=== PATIENT | male | born 1975 | race Caucasian/White ===

== ENCOUNTER 2020-11-07 11:15 | Emergency (ER) | payer OTHER, SELFPAY ==
[2020-11-07 11:27] VITALS: BP 141/78; PULSE 58; RESP 18; TEMP 36.5; O2SAT 97; BMI 40.4
--- NOTE | 2020-11-07 13:20 | ED_ITS ---
HPI - Recheck/Abnormal Lab/Rx General Chief Complaint: Recheck/Abnormal Lab/Rx Stated Complaint: Insalin Time Seen by Provider: 11/07/20 13:19 Source: patient Mode of arrival: Ambulatory Limitations: no limitations History of Present Illness HPI narrative: This is a 45-year-old male who is a known insulin-dependent diabetic requesting refill for his insulin. Patient did contact the local pharmacies a only give regular insulin and would cost approximately 200 dollars monthly. Patient normally takes Lantus 40 units nightly. He has recently moved to the area and is attempting to establish with a primary care but has not been successful. Patient denies any other symptoms or concerns at this time. Related Data Previous Rx's Medication Instructions Recorded insulin glargine [Lantus U-100 40 unit SUBCUT .QHS 30 Days #20 ml 11/07/20 Insulin] Allergies Allergy/AdvReac Type Severity Reaction Status Date / Time No Known Drug Allergies Allergy Verified 11/07/20 11:27 Review of Systems Review of Systems ROS Unobtainable: All systems reviewed & are unremarkable except as noted in HPI and below Patient History Social History Smoking Status: Current every day smoker Smoking Status: Current every day smoker tobacco type: smokeless tobacco alcohol intake frequency: a few times a month Substance Use Type: does not use Exam Narrative Exam Narrative: GENERAL: Alert and oriented x three, swelling appearing male in mild distress. HEENT: Head normocephalic, atraumatic, EOMI, pupils reactive, face symmetric, moist mucous membranes NECK: Supple, full range of motion CARDIOVASCULAR: Regular rate and rhythm without murmurs, rubs or gallops. RESPIRATORY: Breath sounds equal bilaterally, no wheezes rales or rhonchi. ABDOMEN: Soft, nontender. Normoactive bowel sounds all 4 quadrants. No guarding or rebound, rigidity, no mass EXTREMITIES: Normal range of motion, no clubbing or edema. Neurovascularly intact NEUROLOGICAL: Cranial nerves II through XII grossly intact. Moving all extremities. Normal gait. SKIN: Warm, dry, no petechiae, no rashes or lesions. Initial Vital Signs Initial Vital Signs: Vital Signs Temperature 97.7 F 11/07/20 11:27 Pulse Rate 58 L 11/07/20 11:27 Respiratory Rate 18 11/07/20 11:27 Blood Pressure 141/78 H 11/07/20 11:27 Pulse Oximetry 97 11/07/20 11:27 Course Vital Signs Vital signs: Vital Signs - 8 hr 11/07/20 11:27 Temperature 97.7 F Pulse Rate 58 L Respiratory Rate 18 Blood Pressure 141/78 H Pulse Oximetry 97 MDM - Recheck/Abnormal Lab/Rx MDM Narrative Medical decision making narrative: 45-year-old male with insulin-dependent diabetes who requires refill of his daily Lantus. Patient is attempting to established and was given contact information for our hospice social worker. He deferred any direct contact from them at this time as he states he has contact his insurance company he has received name suggested but has not contacted them yet. Discharge Plan Departure Patient Disposition: Home Clinical Impression: Encounter for medication refill Activity Restrictions/Additional Instructions: Follow up establish with a primary care provider. If you are unable to find a physician, our emergency department hospice social worker is available. Either call or leave a message at [phone] if you need assistance. Continue medication as prescribed. Prescription to [facility]. Return for any other concerns Prescriptions: New Lantus U-100 Insulin 100 unit/mL solution 40 unit SUBCUT .QHS 30 Days Qty: 20 RF: 0
== END 2020-11-07 13:32 | disposition home or self-care (01) ==
PROVIDERS: Emergency Provider Emergency Medicine
DX: Z76.0 Encounter for issue of repeat prescription (principal)
CPT/HCPCS: 99281

== ENCOUNTER → 2021-02-19 08:38 | Outpatient (CLI) | payer OTHER, SELFPAY ==
[2021-02-19 10:03] LABS: Add Manual Diff / Slide Review NO; Basophils Absolute Auto 100 /uL (0-100); Eosinophils Absolute Auto 100 /uL (0-450); Eosinophils Percent Auto 1.7 % (2-4); Hematocrit 41.8 % (41-53); Hemoglobin 14.1 g/dL (13.5-17.5); Lymphocytes Absolute Auto 2800 /uL (1100-4500); Lymphocytes Percent Auto 44.5 % (25-40); Mean Corpuscular HGB Conc 33.7 % (30-36); Mean Corpuscular Hemoglobin 29.7 PG (26-34); Mean Corpuscular Volume 88.1 fL (80-100); Monocytes Absolute Auto 500 /uL (0-900); Monocytes Percent Auto 7.7 % (3-14); Neutrophils Absolute Auto 2800 /uL (1500-7000); Neutrophils Percent Auto 45.1 % (50-75); Platelet Count 266 X10^3/uL (150-400); Red Blood Cell Count 4.75 X10^6/uL (4.5-5.9); Red Cell Distribution Width 13.4 % (11.6-14.8); White Blood Cell Count 6.2 X10^3/uL (4.5-11.0)
[2021-02-19 10:26] LABS: Alanine Aminotransferase 36 IU/L (<50); Albumin 4.3 g/dL (3.5-5.0); Albumin Globulin Ratio 1.5 (1.0-2.8); Alkaline Phosphatase 49 U/L (38-126); Aspartate Aminotransferase 29 IU/L (17-59); BUN Creatinine Ratio 23.2 (6-22); Bilirubin Total 0.4 mg/dL (0.2-1.3); Blood Urea Nitrogen 16 mg/dL (9-20); Calcium 9.5 mg/dL (8.4-10.2); Carbon Dioxide 24 mmol/L (22-32); Chloride 103 mmol/L (98-107); Cholesterol 273 mg/dL (140-199); Estimated Glomerular Filt Rate > 60.0 mL/min (>60); Globulin 2.8 g/dL (1.7-4.1); Glucose 195 mg/dL (70-100); HDL Cholesterol 34 mg/dL (40-60); HEMOLYSIS < 15 (0-50); Potassium 4.3 mmol/L (3.4-5.1); Sodium 135 mmol/L (137-145); Total Protein 7.1 g/dL (6.3-8.2); Triglycerides 517 mg/dL (35-150)
[2021-02-19 10:52] LABS: TSH w/ Reflex to FT4 2.69 uIU/mL (0.47-4.68)
== END ==
PROVIDERS: PCP Registered Nurse Diabetes Educator; Referring Provider Registered Nurse Diabetes Educator; Visit Provider Registered Nurse Diabetes Educator
DX: E11.9 Type 2 diabetes mellitus without complications (principal); E78.5 Hyperlipidemia, unspecified
CPT/HCPCS: 36415; 80053; 80061; 83036; 84443; 85025

== ENCOUNTER → 2021-09-03 09:05 | Outpatient (CLI) | payer OTHER, SELFPAY ==
[2021-09-03 10:06] LABS: Hemoglobin A1C% w Est Avg Glu 10.9 % (4.0-6.0)
[2021-09-03 10:22] LABS: Creatinine Urine Random 306.8 mg/dL
[2021-09-03 10:27] LABS: Microalbumi Creatinin Ratio Ur 7.1 ug/mg CR (<30); Microalbumin Urine Random 2.2 mg/dL (0-1.6)
== END ==
PROVIDERS: PCP Registered Nurse Diabetes Educator; Referring Provider Registered Nurse Diabetes Educator; Visit Provider Registered Nurse Diabetes Educator
DX: E11.9 Type 2 diabetes mellitus without complications (principal); Z79.4 Long term (current) use of insulin
CPT/HCPCS: 36415; 82043; 82570; 83036

== ENCOUNTER → 2022-01-04 07:28 | Outpatient (CLI) | payer OTHER, SELFPAY ==
[2022-01-04 09:09] LABS: Hemoglobin A1C% w Est Avg Glu 7.8 % (4.0-6.0)
[2022-01-04 09:15] LABS: BUN Creatinine Ratio 21.3 (6-22); Blood Urea Nitrogen 19 mg/dL (9-20); Calcium 8.8 mg/dL (8.4-10.2); Carbon Dioxide 25 mmol/L (22-32); Chloride 102 mmol/L (98-107); Estimated Glomerular Filt Rate > 60 mL/min (>60); Glucose 208 mg/dL (70-100); HEMOLYSIS < 15 (0-50); Potassium 4.5 mmol/L (3.4-5.1); Sodium 136 mmol/L (137-145)
== END ==
PROVIDERS: PCP Registered Nurse Diabetes Educator; Referring Provider Registered Nurse Diabetes Educator; Visit Provider Registered Nurse Diabetes Educator
DX: E11.9 Type 2 diabetes mellitus without complications (principal); I10 Essential (primary) hypertension; Z79.4 Long term (current) use of insulin
CPT/HCPCS: 36415; 80048; 83036

== ENCOUNTER → 2022-03-08 07:13 | Outpatient (CLI) | payer OTHER, SELFPAY ==
[2022-03-08 07:50] LABS: Hemoglobin 13.3 g/dL (13.5-17.5); Mean Corpuscular HGB Conc 35.1 % (30-36); Mean Corpuscular Hemoglobin 29.9 PG (26-34); Mean Corpuscular Volume 85.2 fL (80-100); Platelet Count 263 X10^3/uL (150-400); Red Blood Cell Count 4.46 X10^6/uL (4.5-5.9); Red Cell Distribution Width 14.1 % (11.6-14.8)
[2022-03-08 07:56] LABS: Hemoglobin A1C% w Est Avg Glu 7.9 % (4.0-6.0)
[2022-03-08 08:17] LABS: Creatinine Urine Random 291.1 mg/dL
[2022-03-08 08:22] LABS: Microalbumi Creatinin Ratio Ur 6.8 ug/mg CR (<30)
[2022-03-08 08:24] LABS: Alanine Aminotransferase 47 IU/L (<50); Albumin 4.6 g/dL (3.5-5.0); Albumin Globulin Ratio 1.7 (1.0-2.8); Alkaline Phosphatase 51 U/L (38-126); Aspartate Aminotransferase 32 IU/L (17-59); BUN Creatinine Ratio 19.5 (6-22); Bilirubin Total 0.6 mg/dL (0.2-1.3); Blood Urea Nitrogen 16 mg/dL (9-20); Carbon Dioxide 25 mmol/L (22-32); Chloride 104 mmol/L (98-107); Cholesterol 221 mg/dL (140-199); Estimated Glomerular Filt Rate > 60 mL/min (>60); Globulin 2.7 g/dL (1.7-4.1); Glucose 146 mg/dL (70-100); HDL Cholesterol 30 mg/dL (40-60); HEMOLYSIS < 15 (0-50); LDL Cholesterol Calculated 128 mg/dL (<100); Potassium 4.4 mmol/L (3.4-5.1); Sodium 138 mmol/L (137-145); Total Protein 7.3 g/dL (6.3-8.2); Triglycerides 313 mg/dL (35-150)
[2022-03-08 08:54] LABS: TSH w/ Reflex to FT4 2.51 uIU/mL (0.47-4.68)
== END ==
PROVIDERS: PCP Registered Nurse Diabetes Educator; Referring Provider Registered Nurse Diabetes Educator; Visit Provider Registered Nurse Diabetes Educator
DX: E11.9 Type 2 diabetes mellitus without complications (principal); E78.5 Hyperlipidemia, unspecified; I10 Essential (primary) hypertension; Z79.4 Long term (current) use of insulin
CPT/HCPCS: 36415; 80053; 80061; 82043; 82570; 83036; 84443; 85027

== ENCOUNTER → 2022-07-04 06:56 | Outpatient (CLI) | payer OTHER, SELFPAY ==
[2022-07-04 08:01] LABS: Hematocrit 39.1 % (41-53); Hemoglobin 13.7 g/dL (13.5-17.5); Mean Corpuscular Volume 85.8 fL (80-100); Platelet Count 251 X10^3/uL (150-400); Red Blood Cell Count 4.56 X10^6/uL (4.5-5.9); Red Cell Distribution Width 13.9 % (11.6-14.8); White Blood Cell Count 5.9 X10^3/uL (4.5-11.0)
[2022-07-04 08:11] LABS: Hemoglobin A1C% w Est Avg Glu 8.4 % (4.0-6.0)
[2022-07-04 08:26] LABS: Alanine Aminotransferase 47 IU/L (<50); Albumin 4.7 g/dL (3.5-5.0); Albumin Globulin Ratio 1.8 (1.0-2.8); Alkaline Phosphatase 58 U/L (38-126); Aspartate Aminotransferase 27 IU/L (17-59); BUN Creatinine Ratio 19.7 (6-22); Bilirubin Total 0.4 mg/dL (0.2-1.3); Blood Urea Nitrogen 15 mg/dL (9-20); Carbon Dioxide 25 mmol/L (22-32); Chloride 102 mmol/L (98-107); Cholesterol 163 mg/dL (140-199); Estimated Glomerular Filt Rate > 60 mL/min (>60); Globulin 2.6 g/dL (1.7-4.1); Glucose 237 mg/dL (70-100); HDL Cholesterol 30 mg/dL (40-60); HEMOLYSIS < 15 (0-50); Potassium 4.4 mmol/L (3.4-5.1); Sodium 139 mmol/L (137-145); Total Protein 7.3 g/dL (6.3-8.2); Triglycerides 454 mg/dL (35-150)
== END ==
PROVIDERS: PCP Registered Nurse Diabetes Educator; Referring Provider Registered Nurse Diabetes Educator; Visit Provider Registered Nurse Diabetes Educator
DX: E11.9 Type 2 diabetes mellitus without complications (principal); E78.5 Hyperlipidemia, unspecified; I10 Essential (primary) hypertension; Z79.4 Long term (current) use of insulin
CPT/HCPCS: 36415; 80053; 80061; 83036; 85027

== ENCOUNTER 2022-09-08 19:57 | Emergency (ER) | payer OTHER, SELFPAY ==
[2022-09-08 20:03] VITALS: BP 157/94; PULSE 92; RESP 18; TEMP 36.6; O2SAT 95; BMI 40.6
--- NOTE | 2022-09-08 20:30 | ED.NAVMDI ---
HPI - Nausea/Vomiting/Diarrhea General Chief complaint: Nausea/Vomiting/Diarrhea Stated complaint: Diarrhea Time Seen by Provider: 09/08/22 20:23 Source: patient Mode of arrival: Ambulatory Limitations: no limitations History of Present Illness HPI Narrative: This is a 47-year-old male with history of diabetes, hypertension, dyslipidemia, DYLAN and essential benign tremor. Patient states he gets diarrhea about once weekly when his Trulicity starts to wear often he had an episode this evening that he states was quite forceful. He states he thinks his rectum prolapsed. He states it is uncomfortable. He states he can feel something hanging out down there. He denies fevers or chills. No chest pain, no shortness of breath, no nausea or vomiting. Patient denies any abdominal pain. He is not been having persistent diarrhea. No black or bloody stools. Patient has not had hemorrhoid banding or other interventions in the past. He does not smoke any tobacco but does use smokeless tobacco, occasional alcohol, no illicit. His primary care is Calvin Ellis. Related Data Previous Rx's Medication Instructions Recorded atorvastatin 10 mg tablet 10 mg PO BEDTIME #90 tabs 03/30/22 dulaglutide 4.5 mg/0.5 mL 4.5 mg (0.5 mL) SUBCUT QWEEK #6 mL 03/30/22 subcutaneous pen injector (Trulicity) escitalopram oxalate 5 mg tablet 5 mg PO DAILY #90 tabs 03/30/22 fenofibrate 160 mg tablet 160 mg PO DAILY #90 tabs 03/30/22 metformin 500 mg tablet 1,000 mg PO BID #360 tabs 03/30/22 propranolol 20 mg tablet 20 mg PO BID #180 tabs 03/30/22 fluconazole 150 mg tablet 150 mg PO Q3D 2 doses #2 tabs 05/25/22 (Diflucan) empagliflozin 25 mg tablet 25 mg PO DAILY #90 tabs 07/05/22 (Jardiance) losartan 100 mg tablet 100 mg PO DAILY #90 tabs 07/05/22 insulin glargine 100 unit/mL 80 unit (0.8 mL) SUBCUT QPM #60 mL 07/15/22 subcutaneous solution insulin syringe needleless 1 mL #100 ea 07/15/22 fluconazole 150 mg tablet 150 mg PO Q3D 2 doses #2 tabs 09/08/22 (Diflucan) hydrocortisone 1 %-pramoxine 1 % 1 applic VA TID-QID PRN 09/08/22 rectal foam (Proctofoam HC) hemorrhoids #10 grams Allergies Allergy/AdvReac Type Severity Reaction Status Date / Time No Known Drug Allergies Allergy Verified 07/05/22 08:57 Review of Systems Review of Systems ROS Unobtainable: All systems reviewed & are unremarkable except as noted in HPI and below Patient History Medical History Anxiety Carpal tunnel syndrome Chicken pox Hearing loss History of benign essential tremor Hypertension (~2018) DYLAN (obstructive sleep apnea) Vision disorder Social History Smoking Status: Never smoker Smoking Status: Never smoker tobacco type: smokeless tobacco alcohol intake frequency: a few times a month Substance Use Type: does not use Exam Narrative Exam Narrative: GENERAL: Alert and oriented x three, obese male in mild distress. HEENT: Head normocephalic, atraumatic, EOMI, pupils reactive, face symmetric, moist mucous membranes NECK: Supple, full range of motion CARDIOVASCULAR: Regular rate and rhythm without murmurs, rubs or gallops. RESPIRATORY: Breath sounds equal bilaterally, no wheezes rales or rhonchi. ABDOMEN: Soft, nontender. Normoactive bowel sounds all 4 quadrants. No guarding or rebound, rigidity, no mass, patient has a large soft discolored hemorrhoid that is not thrombosed it is approximately the size of a large chicken egg. The rest of the patient's rectum actually appears normal. I am able to perform rectal exam without any issue patient's only very mildly tender. There is no bright red blood or stool : No CVA tenderness EXTREMITIES: Normal range of motion, no clubbing or edema. Neurovascularly intact NEUROLOGICAL: Cranial nerves II through XII grossly intact. Moving all extremities SKIN: Warm, dry, no petechiae, no rashes or lesions. Initial Vital Signs Initial Vital Signs: Vital Signs Temperature 97.9 F 09/08/22 20:03 Pulse Rate 92 H 09/08/22 20:03 Respiratory Rate 18 09/08/22 20:03 Blood Pressure 157/94 H 09/08/22 20:03 Pulse Oximetry 95 09/08/22 20:03 Oxygen Delivery Method 09/08/22 20:03 Course Vital Signs Vital signs: Vital Signs - 8 hr 09/08/22 20:03 Temperature 97.9 F Pulse Rate 92 H Respiratory Rate 18 Blood Pressure 157/94 H Pulse Oximetry 95 Oxygen Delivery Method Room Air MDM - Nausea/Vomiting/Diarrhea MDM Narrative Medical decision making narrative: Patient appears up a very large hemorrhoid I am able to perform rectal exam and he does not have actual prolapse. Hemorrhoid is surprisingly not that tender, does not appear thrombosed at this time. No active bleeding. Did discuss with General surgery usual messages chest just Sitz baths, stool softeners if constipated and can follow-up. Discussed with patient discussed return precautions. Did ask if he can have a prescription for Diflucan he gets balanitis intermittently and he states he started develop an episode usually gets 2 tablets takes 1 and if it does not resolve in a day or 2 he takes the 2nd. Discharge Plan Departure Patient Disposition: Home Clinical Impression: Hemorrhoid prolapse Activity Restrictions/Additional Instructions: Please follow-up for recheck. Your hemorrhoid is persisting and not shrinking referral is included for General surgery if it is becoming more problematic. I would recommend a stool softener if any constipation. Make sure you are staying hydrated. Sitz baths or warm baths 3-4 times daily to the affected area be quite helpful. You may find it helpful to use a donut pillow. You can put Proctofoam to the affected area 3-4 times daily. Also included is prescription for Diflucan [facility]cription [facility]. Please return if you are having rapidly worsening symptoms, bright red bleeding, lightheadedness or passing out, new abdominal pain, black stools or other new or concerning changes. Prescriptions: New Proctofoam HC 1-1 % foam 1 applic VA TID-QID PRN (Reason: hemorrhoids) Qty: 10 0RF fluconazole [Diflucan] 150 mg tablet 150 mg PO Q3D Qty: 2 0RF Rx Instructions: may repeat second dose 72 hrs after first dose if symptoms persist No Action fluconazole [Diflucan] 150 mg tablet 150 mg PO Q3D 0 Days Qty: 2 0RF Rx Instructions: Take 1 tablet by mouth today; may repeat dose in 3 days if symptoms continue. (DME) insulin syringe needleless 1 mL syringe See Rx Instructions .Route Qty: 100 0RF Rx Instructions: Use to inject insulin once daily insulin glargine 100 unit/mL solution 80 unit SUBCUT QPM Qty: 60 1RF atorvastatin 10 mg tablet 10 mg PO BEDTIME Qty: 90 1RF Trulicity 4.5 mg/0.5 mL pen injector 4.5 mg SUBCUT QWEEK Qty: 6 1RF escitalopram oxalate 5 mg tablet 5 mg PO DAILY Qty: 90 3RF fenofibrate 160 mg tablet 160 mg PO DAILY Qty: 90 3RF metformin 500 mg tablet 1,000 mg PO BID Qty: 360 3RF propranolol 20 mg tablet 20 mg PO BID Qty: 180 3RF Jardiance 25 mg tablet 25 mg PO DAILY Qty: 90 3RF losartan 100 mg tablet 100 mg PO DAILY Qty: 90 3RF Referrals: Calvin Ellis ARNP [Primary Care Provider] - Stand Alone Forms: Patient Portal/API
--- NOTE | 2022-09-08 20:48 | PC.NURSE ---
Patient noted to have large dark red bulge in rectal area.
== END 2022-09-08 21:07 | disposition home or self-care (01) ==
PROVIDERS: Emergency Provider Emergency Medicine; PCP Registered Nurse Diabetes Educator
DX: K64.8 Other hemorrhoids (principal)
CPT/HCPCS: 99281

== ENCOUNTER → 2022-10-03 07:15 | Outpatient (CLI) | payer OTHER, SELFPAY ==
[2022-10-03 08:48] LABS: Hemoglobin A1C% w Est Avg Glu 6.8 % (4.0-6.0)
[2022-10-03 09:07] LABS: Alanine Aminotransferase 30 IU/L (<50); Albumin 4.4 g/dL (3.5-5.0); Albumin Globulin Ratio 1.9 (1.0-2.8); Alkaline Phosphatase 54 U/L (38-126); Aspartate Aminotransferase 24 IU/L (17-59); BUN Creatinine Ratio 18.1 (6-22); Bilirubin Total 0.4 mg/dL (0.2-1.3); Blood Urea Nitrogen 13 mg/dL (9-20); Calcium 9.1 mg/dL (8.4-10.2); Carbon Dioxide 27 mmol/L (22-32); Chloride 103 mmol/L (98-107); Cholesterol 106 mg/dL (140-199); Estimated Glomerular Filt Rate > 60 mL/min (>60); Globulin 2.3 g/dL (1.7-4.1); Glucose 192 mg/dL (70-100); HDL Cholesterol 27 mg/dL (40-60); HEMOLYSIS < 15 (0-50); LDL Cholesterol Calculated 20 mg/dL (<100); Potassium 4.4 mmol/L (3.4-5.1); Sodium 138 mmol/L (137-145); Total Protein 6.7 g/dL (6.3-8.2); Triglycerides 294 mg/dL (35-150)
== END ==
PROVIDERS: PCP Registered Nurse Diabetes Educator; Referring Provider Registered Nurse Diabetes Educator; Visit Provider Registered Nurse Diabetes Educator
DX: E11.9 Type 2 diabetes mellitus without complications (principal); E78.5 Hyperlipidemia, unspecified; I10 Essential (primary) hypertension; Z79.4 Long term (current) use of insulin
CPT/HCPCS: 36415; 80053; 80061; 83036

== ENCOUNTER → 2023-04-12 06:57 | Outpatient (CLI) | payer OTHER, SELFPAY ==
[2023-04-12 07:50] LABS: Hematocrit 40.9 % (41-53); Hemoglobin 14.4 g/dL (13.5-17.5); Mean Corpuscular HGB Conc 35.3 % (30-36); Mean Corpuscular Hemoglobin 30.8 PG (26-34); Mean Corpuscular Volume 87.3 fL (80-100); Platelet Count 274 X10^3/uL (150-400); Red Blood Cell Count 4.69 X10^6/uL (4.5-5.9); Red Cell Distribution Width 13.6 % (11.6-14.8); White Blood Cell Count 6.2 X10^3/uL (4.5-11.0)
[2023-04-12 08:19] LABS: Alanine Aminotransferase 48 IU/L (<50); Albumin 4.8 g/dL (3.5-5.0); Albumin Globulin Ratio 1.8 (1.0-2.8); Alkaline Phosphatase 45 U/L (38-126); Aspartate Aminotransferase 32 IU/L (17-59); BUN Creatinine Ratio 21.1 (6-22); Bilirubin Total 0.6 mg/dL (0.2-1.3); Blood Urea Nitrogen 16 mg/dL (9-20); Calcium 9.8 mg/dL (8.4-10.2); Carbon Dioxide 23 mmol/L (22-32); Chloride 102 mmol/L (98-107); Cholesterol 172 mg/dL (140-199); Estimated Glomerular Filt Rate > 60 mL/min (>60); Globulin 2.7 g/dL (1.7-4.1); Glucose 155 mg/dL (70-100); HDL Cholesterol 24 mg/dL (40-60); Potassium 4.5 mmol/L (3.4-5.1); Sodium 138 mmol/L (137-145); Total Protein 7.5 g/dL (6.3-8.2)
[2023-04-12 08:26] LABS: HEMOLYSIS 31 (0-50)
[2023-04-12 08:30] LABS: Triglycerides 681 mg/dL (35-150)
[2023-04-12 08:43] LABS: TSH w/ Reflex to FT4 3.15 uIU/mL (0.47-4.68)
[2023-04-12 16:51] LABS: Hemoglobin A1C% w Est Avg Glu 7.4 % (4.0-6.0)
== END ==
PROVIDERS: PCP Registered Nurse Diabetes Educator; Referring Provider Registered Nurse Diabetes Educator; Visit Provider Registered Nurse Diabetes Educator
DX: E78.5 Hyperlipidemia, unspecified (principal); E11.9 Type 2 diabetes mellitus without complications; I10 Essential (primary) hypertension
CPT/HCPCS: 36415; 80053; 80061; 83036; 84443; 85027

== ENCOUNTER → 2023-07-10 11:30 | Outpatient (CLI) | payer OTHER, SELFPAY ==
[2023-07-10 12:10] LABS: Hemoglobin A1C% w Est Avg Glu 7.9 % (4.0-6.0)
[2023-07-10 12:18] LABS: Cholesterol 232 mg/dL (140-199); HDL Cholesterol 39 mg/dL (40-60); Triglycerides 488 mg/dL (35-150)
== END ==
PROVIDERS: PCP Registered Nurse Diabetes Educator; Referring Provider Registered Nurse Diabetes Educator; Visit Provider Registered Nurse Diabetes Educator
DX: E11.9 Type 2 diabetes mellitus without complications (principal); E78.5 Hyperlipidemia, unspecified
CPT/HCPCS: 36415; 80061; 83036

== ENCOUNTER → 2023-10-09 06:59 | Outpatient (CLI) | payer OTHER, SELFPAY ==
[2023-10-09 08:27] LABS: Hemoglobin A1C% w Est Avg Glu 7.3 % (4.0-6.0)
[2023-10-09 08:45] LABS: Cholesterol 195 mg/dL (140-199); HDL Cholesterol 30 mg/dL (40-60)
[2023-10-09 08:59] LABS: Triglycerides 803 mg/dL (35-150)
== END ==
LOC: LAB 07:00
PROVIDERS: PCP Registered Nurse Diabetes Educator; Referring Provider Registered Nurse Diabetes Educator; Visit Provider Registered Nurse Diabetes Educator
DX: E11.9 Type 2 diabetes mellitus without complications (principal); E78.5 Hyperlipidemia, unspecified
CPT/HCPCS: 36415; 80061; 83036

== ENCOUNTER → 2024-01-06 14:28 | Outpatient (CLI) | payer OTHER, SELFPAY ==
--- NOTE | 2024-01-06 14:30 | DI.RAD.S_ITS ---
PROCEDURE: XR ELBOW RT MIN 3V INDICATIONS: Right elbow pain, elbow mass TECHNIQUE: 3 views of the elbow were acquired. COMPARISON: None. FINDINGS: Bones: No fractures or dislocations. No suspicious bony lesions. There is a moderate to prominent enthesophyte along the posterior aspect of the olecranon. Mild fragmentation can be seen of the enthesophyte. Soft tissues: Soft tissue swelling can be seen overlying the olecranon. No joint effusion is seen. IMPRESSION: There is an enthesophyte along the posterior aspect of the olecranon, with mild fragmentation. Overlying soft tissue swelling is seen. Dictated by: Carlos Marc M.D. on 01/06/2024 at 13:49 Approved by: Carlos Marc M.D. on 01/06/2024 at 13:50
== END ==
LOC: RAD 14:29
PROVIDERS: PCP Registered Nurse Diabetes Educator; Referring Provider Physician Assistant Surgical; Visit Provider Physician Assistant Surgical
DX: M25.521 Pain in right elbow (principal); R22.31 Localized swelling, mass and lump, right upper limb; M77.8 Other enthesopathies, not elsewhere classified
CPT/HCPCS: 73080

== ENCOUNTER → 2024-01-27 09:36 | Outpatient (CLI) | payer OTHER, SELFPAY ==
[2024-01-27 10:25] LABS: Hemoglobin A1C% w Est Avg Glu 8.5 % (4.0-6.0)
[2024-01-27 10:36] LABS: Alanine Aminotransferase 51 IU/L (<50); Albumin 4.8 g/dL (3.5-5.0); Albumin Globulin Ratio 2.1 (1.0-2.8); Alkaline Phosphatase 61 U/L (38-126); Aspartate Aminotransferase 31 IU/L (17-59); BUN Creatinine Ratio 19.4 (6-22); Bilirubin Total 0.4 mg/dL (0.2-1.3); Blood Urea Nitrogen 13 mg/dL (9-20); Calcium 9.3 mg/dL (8.4-10.2); Carbon Dioxide 28 mmol/L (22-32); Chloride 102 mmol/L (98-107); Cholesterol 137 mg/dL (140-199); Estimated Glomerular Filt Rate > 60 mL/min (>60); Globulin 2.3 g/dL (1.7-4.1); Glucose 283 mg/dL (70-100); HDL Cholesterol 36 mg/dL (40-60); HEMOLYSIS 16 (0-50); LDL Cholesterol Calculated 21 mg/dL (<100); Potassium 4.8 mmol/L (3.4-5.1); Sodium 136 mmol/L (137-145); Total Protein 7.1 g/dL (6.3-8.2); Triglycerides 400 mg/dL (35-150)
== END ==
PROVIDERS: PCP Registered Nurse Diabetes Educator; Referring Provider Registered Nurse Diabetes Educator; Visit Provider Registered Nurse Diabetes Educator
DX: E11.9 Type 2 diabetes mellitus without complications (principal); E78.5 Hyperlipidemia, unspecified; I10 Essential (primary) hypertension
CPT/HCPCS: 36415; 80053; 80061; 83036

== ENCOUNTER 2024-04-16 06:52 | Day surgery (SDC) | payer OTHER, SELFPAY ==
--- NOTE | 2024-04-16 | PATH_ITS ---
[facility] Accession Number: [id number] No. of containers..01 Tissue . 01 Material submitted: . rectum - RECTAL POLYP . 01 Diagnosis: RECTUM, POLYP: Colonic mucosa with submucosal mature adipose tissue, consistent with benign lipoma. Negative for atypia, epithelial dysplasia, and malignancy. [facility] 04/18/2024 1329 Local . 01 Electronically signed: . Shea Quintero MD, Pathologist NPI- [id number] . 01 Gross description: . Received in formalin with two patient identifiers and rectal polyp, is a mays, spheroid, soft tissue fragment, 1.4 x 1.4 x 1.8 cm. Inked blue, serially sectioned, and submitted entirely in A1-A3. ([id number]) /MRV 04/17/2024 0826 Local . 01 Pathologist provided ICD-10: K62.1 . 01 CPT . 251491 Specimen Comment: A courtesy copy of this report has been sent to [phone] Performed at: [address] [facility] [address], [place], [place] [id number] MD Donnie Cuenca MD Phone: [phone]
[2024-04-16 07:10] VITALS: BP 172/90; PULSE 74; RESP 17; TEMP 36.1; O2SAT 96
[2024-04-16] MEDS: LACTATED RINGERS 1,000 ML 42 ML IV (07:32)
--- NOTE | 2024-04-16 07:51 | PM.HP.1 ---
History of Present Illness History of Present Illness Date Patient Seen: 04/16/24 Time Patient Seen: 07:51 [place] [facility] [place]: 49-year-old man who here for 1st time screening colonoscopy. No family history colon cancer. No abdominal concerns today. [facility] Medical History Anhedonia DYLAN (obstructive sleep apnea) Vision disorder Hearing loss Carpal tunnel syndrome Chicken pox Anxiety History of benign essential tremor Hypertension (~2019) Social History Smoking Status: Never smoker alcohol intake: current Meds Home Medications and Allergies Home Medications Medication Instructions Recorded Confirmed Type dulaglutide 4.5 mg/0.5 mL 4.5 mg (0.5 mL) SUBCUT QWEEK #6 mL 12/14/23 04/16/24 Rx subcutaneous pen injector (Trulicity) insulin syringe-needle U-100 1 mL #10 ea 12/26/23 01/29/24 Rx 31 gauge x 5/16 (Droplet Insulin Syringe) atorvastatin 20 mg tablet 20 mg PO BEDTIME #90 tabs 02/01/24 04/16/24 Rx bupropion HCl 300 mg 24 hr tablet, 300 mg PO QAM #90 tabs 02/01/24 04/16/24 Rx extended release (Wellbutrin XL) empagliflozin 25 mg tablet 25 mg PO DAILY #90 tabs 02/01/24 04/16/24 Rx (Jardiance) escitalopram oxalate 5 mg tablet 5 mg PO DAILY #90 tabs 02/01/24 04/16/24 Rx fenofibrate 160 mg tablet 160 mg PO DAILY #90 tabs 02/01/24 04/16/24 Rx icosapent ethyl 1 gram capsule 2 g (2 x 1 gram) PO BID #360 caps 02/01/24 04/16/24 Rx insulin glargine 100 unit/mL 45 unit (0.45 mL) SUBCUT QPM #60 mL 02/01/24 04/16/24 Rx subcutaneous solution losartan 100 mg tablet 100 mg PO DAILY #90 tabs 02/01/24 04/16/24 Rx metformin 500 mg tablet 1,000 mg (2 x 500 mg) PO BID #360 02/01/24 04/16/24 Rx tabs propranolol 20 mg tablet 20 mg PO BID #180 tabs 02/01/24 04/16/24 Rx fluconazole 150 mg tablet 150 mg PO Q3D 2 doses #2 tabs 04/11/24 04/16/24 Rx Allergies Allergy/AdvReac Type Severity Reaction Status Date / Time No Known Drug Allergies Allergy Verified 04/16/24 07:20 Exam Vital Signs (past 8 hours): - 04/16/24 07:10 Temperature 96.9 F L Pulse Rate 74 Respiratory Rate 17 Blood Pressure 172/90 H Pulse Oximetry 96 Oxygen Delivery Method Room Air Oxygen Delivery Method Room Air Narrative Exam Narrative: General adult man alert oriented no acute distress Chest nonlabored respiration Extremities warm well perfused Assessment & Plan Assessment & Plan narrative: The patient requires colorectal screening and colonoscopy is recommended. Technical details were discussed. Risks, benefits, alternatives explained. Risks including but not limited to myocardial infarction, aspiration, bleeding, pain, missed lesion, incomplete examination, need for further radiographic studies, intestinal injury, and need for major abdominal surgery were discussed. All questions were answered to their satisfaction, and they are in agreement with this plan. Time-Based Coding :: [TOTAL MINUTES] spent with patient and on the chart (including review of chart, obtaining history, exam, reviewing outside data, placing orders, documenting exam and treatment plan, and counseling patient) on [DATE].
--- NOTE | 2024-04-16 07:52 | P.OP.COLON_ITS ---
Operative Date/Time/Diagnoses Date of procedure: 04/16/24 Time of procedure: 07:52 Pre-op diagnosis: Colorectal screening Procedure & Clinicians Study performed: Screening colonoscopy Same procedure as scheduled: Yes Indications: Screening Surgeon: Dominic Johnson Procedure Notes Procedure in detail: The history and physical was performed/updated and the patient is ASA class is 3. The procedure was discussed in detail with the patient. Potential risks complications including infection, bleeding, missed diagnosis, perforation, need for surgery, and were explained. Their questions were answered and informed consent was obtained. Patient was brought to the procedure room and placed standard monitoring equipment. The patient's vital signs were monitored continuously throughout the entire procedure. Prior to starting time-out was performed. The patient was placed in the left lateral recumbent position. Procedural sedation was administered by anesthesia. Examination began with a thorough inspection of the perianal area there was no evidence of fissures, fistulae, external hemorrhoids or cutaneous malignancy. The colonoscopy scope was then placed into the anal canal and was advanced to the cecum, which was identified by the ileocecal valve, the appendiceal orifice and the confluence of the taenia. The scope was then slowly withdrawn examining colon thoroughly in all directions, irrigating it of any residual stool. The scope was retroflexed within the rectum The patient tolerated the procedure well. They will be discharged once criteria are met. The prep was of good/excellent quality. The withdrawl time was 7 minutes. FINDINGS * 1 cm pedunculated polyp within the rectum removed with hot snare in entirety. Specimen(s): other (Rectal polyp) Impression: Colonic polyp x1 Post-procedure Plan for aftercare: Follow-up is dependent on pathology findings Disposition: same day surgery
[2024-04-16 08:14] VITALS: BP 145/90; PULSE 73; RESP 18; TEMP 37.1; O2SAT 94
[2024-04-16 08:18] VITALS: BP 128/81; PULSE 70; RESP 17; O2SAT 91
[2024-04-16 08:25] VITALS: BP 129/80; PULSE 67; RESP 18; TEMP 36.6; O2SAT 93
== END 2024-04-16 08:42 | disposition home or self-care (01) ==
PROVIDERS: PCP Registered Nurse Diabetes Educator; Referring Provider Surgery; Visit Provider Surgery
PROC: 0DJD8ZZ Inspection of Lower Intestinal Tract, Via Natural or Artificial Opening Endoscopic (ICD-10-PCS; CPT 45378; principal; 2024-04-16 08:00)
DX: Z12.11 Encounter for screening for malignant neoplasm of colon (principal); K62.1 Rectal polyp
CPT/HCPCS: 45385; J2704

== ENCOUNTER → 2024-04-22 07:28 | Outpatient (CLI) | payer OTHER, SELFPAY ==
[2024-04-22 09:22] LABS: Hemoglobin A1C% w Est Avg Glu 9.3 % (4.0-6.0)
[2024-04-22 09:32] LABS: Alanine Aminotransferase 41 IU/L (<50); Albumin 4.6 g/dL (3.5-5.0); Albumin Globulin Ratio 1.8 (1.0-2.8); Alkaline Phosphatase 66 U/L (38-126); Aspartate Aminotransferase 28 IU/L (17-59); Bilirubin Total 0.5 mg/dL (0.2-1.3); Bilirubin Unconjugated 0.2 mg/dL (0.0-1.1); Globulin 2.6 g/dL (1.7-4.1); HEMOLYSIS < 15 (0-50); Total Protein 7.2 g/dL (6.3-8.2)
== END ==
PROVIDERS: PCP Registered Nurse Diabetes Educator; Referring Provider Registered Nurse Diabetes Educator; Visit Provider Registered Nurse Diabetes Educator
DX: E11.9 Type 2 diabetes mellitus without complications (principal); R74.8 Abnormal levels of other serum enzymes
CPT/HCPCS: 36415; 80076; 83036

== ENCOUNTER → 2024-07-27 11:42 | Outpatient (CLI) | payer OTHER, SELFPAY | PROVIDERS: PCP Registered Nurse Diabetes Educator; Referring Provider Registered Nurse Diabetes Educator; Visit Provider Registered Nurse Diabetes Educator | DX: E11.9 Type 2 diabetes mellitus without complications (principal) | CPT/HCPCS: 36415; 83036 ==

== ENCOUNTER → 2024-11-04 07:00 | Outpatient (CLI) | payer OTHER, SELFPAY ==
[2024-11-04 07:52] LABS: Hemoglobin A1C% w Est Avg Glu 6.4 % (4.0-6.0)
== END ==
PROVIDERS: PCP Registered Nurse Diabetes Educator; Referring Provider Registered Nurse Diabetes Educator; Visit Provider Registered Nurse Diabetes Educator
DX: E11.9 Type 2 diabetes mellitus without complications (principal)
CPT/HCPCS: 36415; 83036

== ENCOUNTER → 2025-02-01 09:05 | Outpatient (CLI) | payer OTHER, SELFPAY ==
[2025-02-01 09:43] LABS: Hematocrit 38.6 % (41-53); Hemoglobin 13.9 g/dL (13.5-17.5); Mean Corpuscular HGB Conc 36.0 % (30-36); Mean Corpuscular Hemoglobin 31.0 PG (26-34); Mean Corpuscular Volume 85.9 fL (80-100); Platelet Count 261 X10^3/uL (150-400)
[2025-02-01 09:52] LABS: Hemoglobin A1C% w Est Avg Glu 6.5 % (4.0-6.0)
[2025-02-01 09:57] LABS: Alanine Aminotransferase 27 IU/L (<50); Albumin 4.6 g/dL (3.5-5.0); Albumin Globulin Ratio 2.1 (1.0-2.8); Alkaline Phosphatase 49 U/L (38-126); Blood Urea Nitrogen 15 mg/dL (9-20); Calcium 9.4 mg/dL (8.4-10.2); Carbon Dioxide 25 mmol/L (22-32); Chloride 103 mmol/L (98-107); Cholesterol 128 mg/dL (140-199); Estimated Glomerular Filt Rate > 60 mL/min (>60); Globulin 2.2 g/dL (1.7-4.1); Glucose 201 mg/dL (70-99); HDL Cholesterol 34 mg/dL (40-60); HEMOLYSIS < 15 (0-50); Potassium 4.4 mmol/L (3.4-5.1); Sodium 136 mmol/L (137-145); Total Protein 6.8 g/dL (6.3-8.2); Triglycerides 281 mg/dL (35-150)
[2025-02-01 10:26] LABS: TSH w/ Reflex to FT4 2.73 uIU/mL (0.47-4.68)
== END ==
PROVIDERS: PCP Registered Nurse Diabetes Educator; Referring Provider Registered Nurse Diabetes Educator; Visit Provider Registered Nurse Diabetes Educator
DX: E11.9 Type 2 diabetes mellitus without complications (principal); I10 Essential (primary) hypertension; E78.5 Hyperlipidemia, unspecified
CPT/HCPCS: 36415; 80053; 80061; 83036; 84443; 85027